=== PATIENT | male | born 1965 | race Caucasian/White ===

== ENCOUNTER 2019-07-17 20:31 | Emergency (ER) | payer MEDICAID ==
--- NOTE | 2019-07-17 21:06 | EDM.PDOCBH ---
ED HPI GENERAL MEDICAL PROBLEM - General Chief Complaint: Behavioral/Psych Stated Complaint: HEARING VOICES Time Seen by Provider: 07/17/19 20:51 Source of Information: Reports: Patient History Limitations: Reports: No Limitations - History of Present Illness INITIAL COMMENTS - FREE TEXT/NARRATIVE: 54-year-old male that presents here to the emergency room from the [place] by a taxi after hitchhiking here from [place]. Patient states he is on his way back to [place]. Patient states he spent 3 days in [facility] inpatient secondary to schizophrenia and psychosis paranoia. Patient states he was released about 3 days ago and since then he has been having audio and visual hallucinations. He states he hears people talking and can see people and when he confronts them they get argumentative. Patient states he knows he needs to be placed inpatient because he does not want to hurt anybody nor himself although he has no specific plan he states he will hurt himself if he does not get some help. He told the nurse that [place] was [place] he did not actually plan to myself. Patient states he has had psych issues all of his life and has been in and out of inpatient treatment and on multiple medications. He has no other complaints at this time except for his feet hurt secondary to walking Duration: Chronic Associated Symptoms: Reports: No Other Symptoms - Related Data Allergies Allergy/AdvReac Type Severity Reaction Status Date / Time No Known Allergies Allergy Verified 07/17/19 20:33 Home Meds: Home Meds FLUoxetine HCl [Prozac] 20 mg PO DAILY 07/17/19 [History] OLANZapine [ZyPREXA] 0.5 mg PO BID 07/17/19 [History] OLANZapine [ZyPREXA] 10 mg PO BEDTIME PRN 07/17/19 [History] traZODone HCl [Trazodone HCl] 50 mg PO BEDTIME PRN 07/17/19 [History] Past Medical History Gastrointestinal History: Reports: Hepatitis Psychiatric History: Reports: Addiction, Psych Hospitalization(s), Suicide Attempt, Suicidal Ideation Social & Family History - Tobacco Use Smoking Status *Q: Current Every Day Smoker Years of Tobacco use: 40 Packs/Tins Daily: 1.5 - Alcohol Use Days Per Week of Alcohol Use: 7 Number of Drinks Per Day: 12 Total Drinks Per Week: 84 - Recreational Drug Use Recreational Drug Use: Yes Drug Use in Last 12 Months: Yes Recreational Drug Type: Reports: Methamphetamine Recreational Drug Use Frequency: Daily ED ROS GENERAL - Review of Systems Review Of Systems: See Below Constitutional: Reports: No Symptoms HEENT: Reports: No Symptoms Respiratory: Reports: No Symptoms Cardiovascular: Reports: No Symptoms Endocrine: Reports: No Symptoms GI/Abdominal: Reports: No Symptoms : Reports: No Symptoms Musculoskeletal: Reports: No Symptoms Skin: Reports: No Symptoms Neurological: Reports: No Symptoms. Denies: Confusion, Dizziness, Headache, Numbness, Pre-Existing Deficit, Seizure, Syncope, Tingling, Trouble Speaking, Difficulty Walking, Weakness Psychiatric: Reports: Agitation, Anxiety, Depression, Hallucinations, Homicidal Ideation, Suicidal Ideation. Denies: Confusion, Cravings Hematologic/Lymphatic: Reports: No Symptoms Immunologic: Reports: No Symptoms ED EXAM, BEHAVIORAL HEALTH - Physical Exam Exam: See Below Exam Limited By: No Limitations General Appearance: Alert, WD/WN, No Apparent Distress, Other (Patient is friendly and cooperative answers all questions with logical thought process cranial nerves II through XII are intact he has a normal gait there is no pressured speech or noted agitation) Eye Exam: Bilateral Eye: Normal Inspection Throat/Mouth: Normal Inspection, Normal Lips, Normal Teeth, Normal Gums, Normal Oropharynx, Normal Voice, No Airway Compromise Head: Atraumatic, Normocephalic Neck: Normal Inspection, Supple, Non-Tender, Full Range of Motion Respiratory/Chest: No Respiratory Distress, Lungs Clear, Normal Breath Sounds, No Accessory Muscle Use Cardiovascular: Normal Peripheral Pulses, Regular Rate, Rhythm GI/Abdominal: Normal Bowel Sounds, Soft, Non-Tender Extremities: Normal Inspection, Normal Range of Motion, Non-Tender, No Pedal Edema, Normal Capillary Refill Neurological: Alert, Normal Mood/Affect, CN II-XII Intact, Normal Cognition, Normal Gait, Normal Reflexes, No Motor/Sensory Deficits, Oriented x 3 Psychiatric: Alert, Normal Affect, Normal Cognition, Normal Mood, Oriented Skin Exam: Warm, Dry, Intact, Normal color, No rash COURSE, BEHAVIORAL HEALTH COMP - Course Vital Signs: Last Vital Signs Temp 37.3 C 07/17/19 20:34 Pulse 101 H 07/17/19 20:34 Resp 18 05/31/20 20:34 BP 141/90 H 07/17/19 20:34 Pulse Ox 96 07/17/19 20:34 Psych labs checked at [facility] was called for certified medical technician Spoke with Dian at the [facility] who is the screener she called [facility] states they are willing to try to have placement for the patient but want extra labs prior to excepting patient and give him a call when were done [phone] and speak with Machelle Patient on UDS has positive marijuana positive meth spoke with DR Gee psych in [facility] will accept pt give 10 mg zyprexa have placed involuntary and send pt to facility paperwork faxed at [phone] Orders, Labs, Meds: Active Orders 24 hr Category Date Time Status ETHANOL BLOOD MEDICAL [CHEM] Stat Lab 07/17/19 21:59 Ordered SALICYLATE [REF] Stat Lab 07/17/19 21:59 Ordered TSH ULTRASENSITIVE [CHEM] Stat Lab 07/17/19 21:59 Ordered Laboratory Tests 07/17/19 07/17/19 07/17/19 Range/Units 21:05 21:05 21:18 WBC 6.0 (4.0-10.0) x10^3/uL RBC 3.96 L (4.5-6.0) x10^6/uL Hgb 12.7 L (14.0-18.0) g/dL Hct 37.2 L (40.0-52.0) % MCV 93.9 H (78.0-93.0) fL MCH 32.1 H (26.0-32.0) pg MCHC 34.1 (32.0-36.0) g/dL RDW Coeff of Rekha 13.2 (10.0-15.0) % Plt Count 224 (130-400) x10^3/uL Neut % (Auto) 49.9 L (50.0-80.0) % Lymph % (Auto) 32.7 (25.0-50.0) % [place] % (Auto) 13.4 H (2.0-11.0) % Eos % (Auto) 3.3 (0.0-4.0) % Baso % (Auto) 0.7 (0.2-1.2) % Sodium 142 (136-145) mmol/L Potassium 3.5 (3.5-5.1) mmol/L Chloride 108 H (98-107) mmol/L Carbon Dioxide 27 (21-32) mmol/L Anion Gap 10.5 (10-20) mmol/L BUN 15 (7-18) mg/dL Creatinine 0.9 (0.70-1.30) mg/dL Est Cr Clr Drug Dosing TNP Estimated GFR (MDRD) > 60 Glucose 124 H (74-106) mg/dL Calcium 8.4 L (8.5-10.1) mg/dL Urine Opiates Screen Negative (NEAGTIVE) Ur Buprenorphine Scrn Negative (NEGATIVE) Ur Oxycodone Screen Negative (NEGATIVE) Ur EDDP (Meth Metab) Negative (NEGATIVE) Urine Methadone Screen Negative (NEGATIVE) Acetaminophen 0 L (10-30) ug/ml Ur Barbiturates Screen Negative (NEGATIVE) Ur Tricyclics Screen Negative (NEGATIVE) Ur Phencyclidine Scrn Negative (NEGATIVE) Ur Amphetamine Screen Negative (NEGATIVE) U Methamphetamines Scrn Positive H (NEGATIVE) Urine MDMA Screen Negative (NEGATIVE) U Benzodiazepines Scrn Negative (NEGATIVE) U Cocaine Metab Screen Negative (NEGATIVE) U Marijuana (THC) Screen Positive H (NEGATIVE) Departure - Departure Time of Disposition: 22:45 Disposition: DC/Tfer to Psych Hosp/Unit 65 Condition: Good Clinical Impression: Paranoia (psychosis), Schizophrenia - Discharge Information *PRESCRIPTION DRUG MONITORING PROGRAM REVIEWED*: No *COPY OF PRESCRIPTION DRUG MONITORING REPORT IN PATIENT KENNEY: No Referrals: PCP,None [Primary Care Provider] - Forms: ED Department Discharge Sepsis Event Note - Evaluation Sepsis Screening Result: No Definite Risk - Focused Exam Vital Signs: Vital Signs Temp Pulse Resp BP Pulse Ox 07/17/19 20:34 37.3 C 101 H 18 141/90 H 96 Date Exam was Performed: 07/17/19 Time Exam was Performed: 22:16 - Problem List & Annotations (1) Paranoia (psychosis) SNOMED Code(s): 232203754 Code(s): F22 - DELUSIONAL DISORDERS Status: Acute Current Visit: Yes (2) Schizophrenia SNOMED Code(s): 22069134 Code(s): F20.9 - SCHIZOPHRENIA, UNSPECIFIED Status: Acute Current Visit: Yes - My Orders Last 24 Hours: My Active Orders 07/17/19 21:59 ETHANOL BLOOD MEDICAL [CHEM] Stat SALICYLATE [REF] Stat TSH ULTRASENSITIVE [CHEM] Stat - Assessment/Plan Last 24 Hours: My Active Orders 07/17/19 21:59 ETHANOL BLOOD MEDICAL [CHEM] Stat SALICYLATE [REF] Stat TSH ULTRASENSITIVE [CHEM] Stat
[2019-07-17 21:26] LABS: BARBITURATE SCREEN,URINE NEGATIVE (NEGATIVE); BENZODIAZEPINES SCREEN,URINE NEGATIVE (NEGATIVE); EDDP,URINE SCREEN NEGATIVE (NEGATIVE); METHAMPHETAMINE SCREEN, URINE POSITIVE (NEGATIVE); TCA SCREEN,URINE NEGATIVE (NEGATIVE); THC SCREEN,URINE 50 NG/ML POSITIVE (NEGATIVE)
[2019-07-17 21:32] LABS: CHLORIDE,CL 108 mmol/L (98-107); SODIUM,NA 142 mmol/L (136-145)
[2019-07-17 21:36] LABS: ACETAMINOPHEN 0 ug/ml (10-30); ANION GAP 10.5 mmol/L (10-20)
[2019-07-17] MEDS ORDERED: OLANZapine 10 MG Tab PO ONE (22:46)
== END 2019-07-18 00:02 ==
LOC: VM.ED 20:31
DX: F20.0 Paranoid schizophrenia (principal); F17.210 Nicotine dependence, cigarettes, uncomplicated; Z79.899 Other long term (current) drug therapy
CPT/HCPCS: 36415; 80048; 80305; 80307; 84443; 85025; 99285; A9270